=== PATIENT | male | born 1970 | race Caucasian/White ===

== ENCOUNTER 2018-11-03 13:03 | Inpatient (IN) | payer MEDICAID, SELFPAY ==
[2018-11-03 13:21] VITALS: BMI 28.6; BMI 28.7
[2018-11-03 13:47] VITALS: BP 143/77; PULSE 96; RESP 18; TEMP 37.2
--- NOTE | 2018-11-03 14:01 | PCM.HP.STD ---
Problem List (1) Nicotine dependence Status: Acute (2) Opiate withdrawal Status: Acute (3) Polysubstance dependence Status: Acute History of Present Illness Date of Admission: 11/03/18 Chief Complaint: Acute opiate withdrawal The patient is a 48 year old M with PMHx of polysubstance use, nicotine dependence, chronic hep C, not on treatment, anxiety/depression, not on treatment, who comes in for medical stabilisation under the [facility] protocol. Patient reports using 1/2 to 1g of heroin/fentanyl daily. He also admits to use of prescription medications - Vicodin. He last used heroin yesterday, a little bit about 09/03. He admits to abdominal pain, headaches, aches. His CINA score on admission was 17. He is currently homeless. He has a pre-scheduled rehab planned at [facility] post discharge. Vitals on admission was T 98.9F, HR 98, BP 143/97, RR 18. Urine tox is positive for opiates, cannabinoids, amphetamines Past Medical History Allergies sertraline [From Zoloft] Allergy (Verified 11/03/18 13:23) Hives Surgical History: appendectomy Psychiatric History: Anxiety, Depression Lives: Homeless Smoking Status: Current every day smoker Tobacco Use: Cigarettes Alcohol: Heavy Drugs: Cocaine, Heroin, Marijuana - *Family History Maternal History Items: No pertinent history Paternal History Items: No pertinent history Review of Systems Constitutional: Reports: Weakness. Denies: Anorexia, Chills, Fever, Night Sweats, Weight Change, Fatigue Eyes: Denies: Blurred vision, Cataracts, Drainage, Eyelid Inflammation HEENT: Reports: Nasal Congestion. Denies: Difficulty Hearing, Difficulty Swallowing, Head Aches, Sinus Congestion, Sinus Drainage, Sore Throat, Visual Changes Cardiovascular: Denies: Chest Pain, Claudication, Heaviness, Light Headedness, Orthopnea, Palpitations, Paroxysmal Noc. Dyspnea Respiratory: Denies: Cough, Shortness of Breath, Shortness of breath at rest, Sputum production Gastrointestinal: Reports: Abdominal Pain, Diarrhea, Nausea, Vomiting Genitourinary: Denies: Dysuria, Frequency, Incontinence, Nocturia, Urgency Musculoskeletal: Denies: Joint Pain, Joint stiffness, Joint swelling, Joint Tenderness Skin: Denies: Rash, Wounds Neurological: Denies: Numbness, Tingling, Focal weakness Psychiatric: Denies: Anxiety, Depression, Homicidal Ideations, Suicidal Ideations Hematologic/ Lymphatic: Denies: Easy Bruising, Easy Bleeding VTE Information - Inpt Only VTE Present on Admission: No VTE Pharm Prophylaxis ordered?: Yes Patient Problems: Active and Suspected Problems Nicotine dependence (Acute) Opiate withdrawal (Acute) Polysubstance dependence (Acute) - Physical Exam General: Alert, Oriented x3, Cooperative, No apparent distress HEENT: Atraumatic, PERRLA, EOMI, Normocephalic Oral: Moist Mucosa Neck: Supple, No JVD, Negative Carotid Bruits Lungs: Clear to auscultation, Normal air movement Cardiovascular: Regular rate, Regular Rhythm, Normal S1, Normal S2, No murmurs Abdomen: Bowel Sounds Present, Soft, Non Tender, Non-Distended, No Hepato-splenomegaly Extremities: No edema Skin: No rashes, No breakdown Musculoskeletal: No Tenderness to Palpation of Joints or Extremities Lymphatic: No Cervical, Supraclavicular, or Inguinal Adenopathy Neurological: Cranial nerves II-XII grossly intact, Neuro grossly intact Psych/Mental Status: Normal Affect, Appropriate Vital Signs Temp Pulse Resp BP 98.9 F 96 18 143/77 H 11/03/18 13:47 11/03/18 13:47 11/03/18 13:47 11/03/18 13:47 Weight: 93.213 kg Body Mass Index (BMI) 28.6 Assessment/Plan All Active Problems Nicotine dependence (Acute) Opiate withdrawal (Acute) Polysubstance dependence (Acute) 48 year old M with PMHx of polysubstance use, nicotine dependence, chronic hep C, not on treatment, anxiety/depression, not on treatment, who comes in for medical stabilisation under the [facility] protocol. 1. Acute opiate withdrawal, admitting CINA score 17, on [facility] protocol 2. Nicotine dependence, on replacement 3. Polysubstance use, advised to quit 4. Chronic hep C, needs to be followed in the outpatient 5. Anxiety/depression, not on meds 6. DVT PPx - early ambulation Code Visit Inpatient E&M: 96006 Init Hosp L2
[2018-11-03] MEDS: Buprenorphine HCl 2 MG TAB.SUBL SL ×2 (14:42→22:17)
[2018-11-03 15:04] LABS: Amphetamine Urine VISTA POSITIVE (<1000 ng/mL); Barbiturate Urine VISTA NEGATIVE (< 200 ng/mL); Benzodiazepine Urine VISTA NEGATIVE (< 200 ng/mL); Cocaine Urine VISTA NEGATIVE (< 300 ng/mL); Ecstacy Urine VISTA NEGATIVE (< 500 ng/mL); Methadone Urine VISTA NEGATIVE (< 300 ng/mL); PCP Urine VISTA NEGATIVE (< 25 ng/mL); THC Urine VISTA POSITIVE (< 50 ng/mL); Vista UDS pH Range 6
[2018-11-03 17:39] VITALS: BP 134/78; PULSE 88; RESP 16; TEMP 36.9
[2018-11-03 22:15] VITALS: BP 138/93; PULSE 84; RESP 16; TEMP 36.9
[2018-11-03] MEDS: traZODone 50 MG Tablet PO (22:17)
[2018-11-04 02:21] VITALS: BP 112/68; PULSE 68; RESP 16; TEMP 36.7
[2018-11-04 06:04] LABS: Absolute Neutrophil Count 4.1 X10^3/uL (2.0-7.7); Basophil# 0.05 X10^3/uL; Basophil% 0.5 % (0-1); Eosinophil# 0.43 X10^3/uL; Eosinophils% 4.3 % (0-5); Hematocrit 46.2 % (40-54); Hemoglobin 15.5 g/dl (13.0-16.5); Lymphocyte % 44.6 % (19-41); Mean Corp Hgb Conc 33.5 g/gl (32-36); Mean Corpuscular Hgb 30.9 pg (27.0-32.0); Mean Corpuscular Volume 92.2 fL (80-94); Mean Platelet Vol. 9.6 fl (6.2-12.0); Monocyte# 0.95 X10^3/uL; Monocyte% 9.4 % (0-10); Neutrophil # 4.14 X10^3/uL (2.7-7.7); Neutrophil % 40.9 % (47-70); Platelet Count 295 K/mm3 (150-450); RBC Distribution Width CV 12.8 % (11.6-14.6); RBC Distribution Width SD 42.3 fl (35.1-43.9); Red Blood Count 5.01 M/mm3 (4.6-6.2); White Blood Count 10.1 K/mm3 (4.4-11.0)
[2018-11-04 06:15] LABS: POSITIVE COUNT NO; POSITIVE DIFFERENTIAL NO; POSITIVE MORPHOLOGY NO
[2018-11-04] MEDS: Buprenorphine HCl 2 MG TAB.SUBL SL ×3 (06:16→22:06)
[2018-11-04 06:19] VITALS: BP 114/72; PULSE 74; RESP 16; TEMP 36.6
[2018-11-04 06:38] LABS: Anion Gap 6 (5-15); BUN 13 mg/dL (7-18); BUN/Creat Ratio 15.5 RATIO (10-20); Calcium,Total 8.7 mg/dL (8.5-10.1); Chloride 110 mmol/L (98-107); Creatinine, Serum 0.84 mg/dL (0.70-1.30); EST Glomerular Filtration Rate 104 mL/min (>60); Est Glom Filt Rate - Afr Amer 126 mL/min (>60); Estimated Creatinine Clearance 115.79 ml/min; Glucose 112 mg/dL (74-106); Potassium 4.1 mmol/L (3.5-5.1); Sodium Level 146 mmol/L (136-145)
--- NOTE | 2018-11-04 07:44 | PCM.PN.HOSP ---
Patient Problems: Active and Suspected Problems Nicotine dependence (Acute) Opiate withdrawal (Acute) Polysubstance dependence (Acute) Subjective: Patient was seen and examined. No new complaints. Doing very well. CINA score is 0 Objective: Physical Exam General: Alert, Oriented x3, Cooperative, No apparent distress HEENT: Atraumatic, PERRLA, EOMI, Normocephalic Oral: Moist Mucosa Neck: Supple, No JVD, Negative Carotid Bruits Lungs: Clear to auscultation, Normal air movement Cardiovascular: Regular rate, Regular Rhythm, Normal S1, Normal S2, No murmurs Abdomen: Bowel Sounds Present, Soft, Non Tender, Non-Distended, No Hepato-splenomegaly Extremities: No edema Skin: No rashes, No breakdown Musculoskeletal: No Tenderness to Palpation of Joints or Extremities Lymphatic: No Cervical, Supraclavicular, or Inguinal Adenopathy Neurological: Cranial nerves II-XII grossly intact, Neuro grossly intact Psych/Mental Status: Normal Affect, Appropriate Vitals/I&O's: Vital Signs Temp Pulse Resp BP 97.8 F 74 16 114/72 11/04/18 06:19 11/04/18 06:19 11/04/18 06:19 11/04/18 06:19 Oxygen Delivery Method Room Air Weight: 93.2 kg Body Mass Index (BMI) 28.6 Intake and Output for Last 24 Hours 11/02/18 11/03/18 11/04/18 23:59 23:59 23:59 Intake Total 1200 / 1200 800 / 800 Balance 1200 / 1200 800 / 800 Laboratory Results 11/03/18 14:45: Urine Opiates Screen POSITIVE H, Urine Methadone Screen NEGATIVE, Ur Barbiturates Screen NEGATIVE, Ur Phencyclidine Scrn NEGATIVE, Ur Amphetamines Screen POSITIVE H, U Methamphetamin-MDMA NEGATIVE, U Benzodiazepines Scrn NEGATIVE, Urine Cocaine Screen NEGATIVE, U Cannabinoids Screen POSITIVE H, Ur Drug Screen Comment 11/04/18 05:43: WBC 10.1, RBC 5.01, Hgb 15.5, Hct 46.2, MCV 92.2, MCH 30.9, MCHC 33.5, RDW 12.8, RDW Differential 42.3, Plt Count 295, MPV 9.6, Immature Gran % (Auto) 0.300, Neut % (Auto) 40.9 L, Lymph % (Auto) 44.6 H, Love % (Auto) 9.4, Eos % (Auto) 4.3, Baso % (Auto) 0.5, Absolute Neuts (auto) 4.1, Absolute Lymphs (auto) 4.50, Total Counted Not Reportable 11/04/18 05:43: Sodium 146 H, Potassium 4.1, Chloride 110 H, Carbon Dioxide 30.0, Anion Gap 6, BUN 13, Creatinine 0.84, Estim Creat Clear Calc 115.79, Est GFR (MDRD) Af Amer 126, Est GFR (MDRD) Non-Af 104, BUN/Creatinine Ratio 15.5, Glucose 112 H, Calcium 8.7 Current Medications Acetaminophen (Tylenol) 500 mg PO Q4H PRN PRN PRN Reason: Temp > 100.4 F Bisacodyl (Dulcolax) 5 mg PO DAILY PRN PRN PRN Reason: Constipation Buprenorphine HCl (Buprenorphine Hcl) 4 mg SL Q8H DEVONTE; Taper Stop: 11/06/18 18:29 Last Admin: 11/04/18 06:16 Dose: 4 mg Clonidine (Catapres) 0.1 mg PO Q2H PRN PRN PRN Reason: Hot/Cold Sweats or Anxiety Dicyclomine HCl (Bentyl) 20 mg PO Q6H PRN PRN PRN Reason: Abdomnial Discomfort Hydroxyzine Pamoate (Vistaril Pamoate Capsule) 50 mg PO Q6H PRN PRN PRN Reason: Mild Anxiety Ibuprofen (Motrin) 600 mg PO Q8H PRN PRN PRN Reason: Mild-Moderate Pain (1-5/10) Magnesium Hydroxide (Milk Of Magnesia) 30 ml PO DAILY PRN PRN PRN Reason: Constipation Methocarbamol (Methocarbamol) 750 mg PO Q6H PRN PRN PRN Reason: Muscle Aches Nicotine (Nicoderm Cq (Pbkc)) 21 mg TRANSDERM. DAILY DEVONTE Last Admin: 11/03/18 14:42 Dose: 21 mg Nicotine Polacrilex (Rugby Nicotine (Bkc)) 2 mg PO Q2H PRN PRN PRN Reason: Nicotine Craving Ondansetron HCl (Zofran Odt) 4 mg PO Q6H PRN PRN PRN Reason: NAUSEA Pramipexole Dihydrochloride (Mirapex) 0.25 mg PO Q12H PRN PRN PRN Reason: Restless Legs Psyllium Hydrophilic Mucilloid (Metamucil) 1 packet PO DAILY PRN PRN PRN Reason: CONSTIPATION Trazodone HCl (Desyrel) 50 mg PO QHS [facility] Last Admin: 11/03/18 22:17 Dose: 50 mg Medical Necessity - Tobacco Use Smoking Status: Current every day smoker Tobacco Use: Cigarettes Assessment/Plan All Active Problems Nicotine dependence (Acute) Opiate withdrawal (Acute) Polysubstance dependence (Acute) 48 year old M with PMHx of polysubstance use, nicotine dependence, chronic hep C, not on treatment, anxiety/depression, not on treatment, who comes in for medical stabilisation under the [facility] protocol. 1. Acute opiate withdrawal, improving, will continue on the [facility] protocol 2. Nicotine dependence, on replacement 3. Polysubstance use, advised to quit 4. Chronic hep C, needs to be followed in the outpatient 5. Anxiety/depression, not on meds 6. DVT PPx - early ambulation Code Visit Inpatient E&M: 19872 Subs Hosp L2
--- NOTE | 2018-11-04 08:24 | NEWVISION ---
Addendum entered by Gladis Larkin 11/05/18 12:42: Patient being picked up around 5pm on 11/05/2018 by referral agency. Original Note: Patient has rehabilitation scheduled at [facility]. 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
[2018-11-04 10:23] VITALS: BP 140/69; PULSE 77; RESP 15; TEMP 36.9
[2018-11-04 14:00] VITALS: BP 132/83; PULSE 73; RESP 16; TEMP 36.3
[2018-11-04] MEDS: traZODone 50 MG Tablet PO (22:06)
[2018-11-04 22:08] VITALS: BP 128/85; PULSE 68; RESP 18; TEMP 36.9
[2018-11-05] MEDS: Buprenorphine HCl 2 MG TAB.SUBL SL ×2 (06:12→17:22)
[2018-11-05 06:14] VITALS: BP 129/79; PULSE 78; RESP 16; TEMP 36.4
[2018-11-05 10:00] VITALS: BP 113/71; PULSE 76; RESP 18; TEMP 37
--- NOTE | 2018-11-05 11:49 | PCM.DC ---
- Discharge Diagnoses Current Active Problems: Current Active and Chronic Problems Nicotine dependence (Acute) Opiate withdrawal (Acute) Polysubstance dependence (Acute) Reason(s) for Visit for Discharge Instructions: Opiate dependence You will use the following diet at home:: Regular Your food should be the consistency of: Regular Your liquids should be the consistency of: Regular/Thin Discharge Activity: Return to Normal Activity Additional Instructions: Follow-up with your outpatient program as scheduled. Allergies/Adverse Reactions: Allergies sertraline [From Zoloft] Allergy (Verified 11/03/18 13:23) Hives Primary Care Physician: Care Physician,No Primary [Primary Care Provider] - Please follow up with your Primary Care Physician in: within 1-2 weeks of discharge Test Results: Test results from this visit will be discussed in further detail at your follow-up appointment, if applicable. Proposed Discharge Date: 11/05/18
--- NOTE | 2018-11-05 11:53 | DCINST_ITS ---
- Discharge Diagnoses Current Active Problems: Current Active and Chronic Problems Nicotine dependence (Acute) Opiate withdrawal (Acute) Polysubstance dependence (Acute) Reason(s) for Visit for Discharge Instructions: Opiate dependence You will use the following diet at home:: Regular Your food should be the consistency of: Regular Your liquids should be the consistency of: Regular/Thin Discharge Activity: Return to Normal Activity Additional Instructions: Follow-up with your outpatient program as scheduled. Allergies/Adverse Reactions: Allergies sertraline [From Zoloft] Allergy (Verified 11/03/18 13:23) Hives Primary Care Physician: Care Physician,No Primary [Primary Care Provider] - Please follow up with your Primary Care Physician in: within 1-2 weeks of discharge Test Results: Test results from this visit will be discussed in further detail at your follow- up appointment, if applicable. Proposed Discharge Date: 11/05/18
--- NOTE | 2018-11-05 11:54 | DS.PCM_ITS ---
Discharge Date and Diagnosis - Problem List Patient Problems: Active and Suspected Problems Nicotine dependence (Acute) Opiate withdrawal (Acute) Polysubstance dependence (Acute) Date of Admission: 11/03/18 Date of Discharge: 11/05/18 - Primary Discharge Diagnosis Active and Suspected Problems Nicotine dependence (Acute) Opiate withdrawal (Acute) Polysubstance dependence (Acute) Hospital Course and Treatment None Operations: None Procedures: None Summary of Care Provided: 48 year old M with PMHx of polysubstance use, nicotine dependence, chronic hep C, not on treatment, anxiety/depression, not on treatment, who comes in for medical stabilisation under the [facility] protocol. Patient is admitting CINA score was 17. His withdrawal score on the regular floor on admission was 6. Patient was started on buprenorphine protocol. His withdrawal score throughout the stay was between 0-3. He did not require any prn medications. Patient remained stable vitally. It was felt that patient did not require the whole 3 days stay and could be discharged at the end of the second day. He will follow-up in the outpatient with an inpatient treatment facility. Patient Problems: Active and Suspected Problems Nicotine dependence (Acute) Opiate withdrawal (Acute) Polysubstance dependence (Acute) Subjective: On the day of discharge, patient was seen and examined. Denied any new complaints. No acute events overnight. Objective: Physical Exam General: Alert, Oriented x3, Cooperative, No apparent distress HEENT: Atraumatic, PERRLA, EOMI, Normocephalic Oral: Moist Mucosa Neck: Supple, No JVD, Negative Carotid Bruits Lungs: Clear to auscultation, Normal air movement Cardiovascular: Regular rate, Regular Rhythm, Normal S1, Normal S2, No murmurs Abdomen: Bowel Sounds Present, Soft, Non Tender, Non-Distended, No Hepato-splenomegaly Extremities: No edema Skin: No rashes, No breakdown Musculoskeletal: No Tenderness to Palpation of Joints or Extremities Lymphatic: No Cervical, Supraclavicular, or Inguinal Adenopathy Neurological: Cranial nerves II-XII grossly intact, Neuro grossly intact Psych/Mental Status: Normal Affect, Appropriate - Physical Exam Vital Signs Temp Pulse Resp BP 98.6 F 76 18 113/71 11/05/18 10:00 11/05/18 10:00 11/05/18 10:00 11/05/18 10:00 Oxygen Delivery Method Room Air Weight: 93.2 kg Body Mass Index (BMI) 28.6 Intake and Output for Last 24 Hours 11/03/18 11/04/18 11/05/18 23:59 23:59 23:59 Intake Total 1200 / 1200 800 / 800 Balance 1200 / 1200 800 / 800 Discharge Diet: No Restrictions Discharge Activity: Return to Normal Activity Primary Care Physician: Care Physician,No Primary [Primary Care Provider] - Please follow up with your Primary Care Physician in: within 1-2 weeks of disch arge Disposition: Home Minutes spent on discharge:: 40 Patient Condition:: Stable Medical Necessity - Tobacco Use Smoking Status: Current every day smoker Tobacco Use: Cigarettes Meaningful Use Info Meaningful Use Diagnoses (Choose all that apply): None applicable Code Visit Inpatient E&M: 27424 Disch Hosp
[2018-11-05 17:10] VITALS: BP 131/80; PULSE 83; RESP 18; TEMP 36.7; O2SAT 99
== END 2018-11-05 17:26 | disposition home or self-care (01) | DRG 773 ==
PROVIDERS: Admitting Provider Internal Medicine; Referring Provider Internal Medicine; Visit Provider Internal Medicine
DX: F11.23 Opioid dependence with withdrawal (principal); B18.2 Chronic viral hepatitis C; F17.210 Nicotine dependence, cigarettes, uncomplicated; F19.20 Other psychoactive substance dependence, uncomplicated
CPT/HCPCS: 36415; 80048; 80307; 85025; 97802; 99406